=== PATIENT | female | born 1960 | race Caucasian/White ===

== ENCOUNTER 2019-09-30 10:17 | Outpatient (CLI) | payer OTHER | END 2019-09-30 10:18 | disposition critical access hospital (66) | LOC: EMS 10:17 | PROVIDERS: ATTEND Surgery | DX: R11.2 Nausea with vomiting, unspecified (principal) | CPT/HCPCS: A0425; A0427 ==

== ENCOUNTER 2019-09-30 10:49 | Emergency (ER) | payer OTHER ==
--- NOTE | 2019-09-30 10:55 | ED Physician Documentation ---
PD HPI NVD - Stated complaint Stated Complaint: VOMITING - History obtained from History obtained from: Patient - History of Present Illness Timing - onset: Last night (at 1:30 am) Timing - duration: Hours Timing - details: Abrupt onset (nausea and vomiting without diarrhea. forceful bilious vomiting without abd pain.) Associated symptoms: Loss of appetite. No: Fever, Abdominal pain, Hematemesis, Melena Contributing factors: Other (denies cannibis use). No: Sick contact, Bad food, Recent antibiotics, Alcohol use Improved by: No: Vomiting Worsened by: Eating Similar symptoms before: Has not had sx before Recently seen: Not recently seen Review of Systems Constitutional: denies: Fever, Chills Nose: denies: Rhinorrhea / runny nose, Congestion Throat: denies: Sore throat Respiratory: denies: Cough GI: reports: Nausea, Vomiting. denies: Abdominal Pain, Abdominal Swelling, Constipation, Diarrhea, Hematemesis : denies: Dysuria, Frequency Neurologic: reports: Generalized weakness. denies: Near syncope, Altered mental status, Headache PD PAST MEDICAL HISTORY - Past Medical History Past Medical History: No - Past Surgical History General: Cholecystectomy - Present Medications Home Medications: Ambulatory Orders Medication Instructions Recorded Confirmed FLUoxetine [PROzac] 09/30/19 Ondansetron Odt [Zofran] 4 mg TL Q6H PRN #10 tablet 09/30/19 buPROPion [Wellbutrin Sr] 09/30/19 lisinopriL [Lisinopril] 09/30/19 - Allergies Allergies/Adverse Reactions: Allergies Allergy/AdvReac Type Severity Reaction Status Date / Time Penicillins Allergy Unknown Verified 09/30/19 11:00 tramadol Allergy Unknown Verified 09/30/19 11:00 venlafaxine Allergy Unknown Verified 09/30/19 11:00 PD ED PE NORMAL - Vitals Vital signs reviewed: Yes - General General: Alert and oriented X 3, Well developed/nourished, Other (appears uncomfortable, dry heaving, holding emesis bag.) - HEENT HEENT: Pharynx benign - Neck Neck: Supple, no meningeal sign, Thyroid normal - Cardiac Cardiac: RRR, No murmur - Respiratory Respiratory: Clear bilaterally - Abdomen Abdomen: Soft, Non tender, Non distended, No organomegaly. No: Normal bowel s ounds (diminished) - Rectal Rectal: Deferred - Back Back: No CVA TTP - Derm Derm: Normal color - Extremities Extremities: Normal ROM s pain, No edema, No calf tenderness / cord - Neuro Neuro: Alert and oriented X 3, No motor deficit, Normal speech Results - Vitals Vitals: Vital Signs - 24 hr 09/30/19 09/30/19 10:55 13:10 Temperature 36.6 C Heart Rate 68 80 Respiratory 24 24 Rate Blood Pressure 142/126 H 154/71 H O2 Saturation 100 94 Oxygen O2 Source Room air - Labs Labs: Laboratory Tests 09/30/19 09/30/19 09/30/19 11:25 11:25 11:25 WBC 9.1 RBC 4.48 Hgb 12.1 Hct 37.3 MCV 83.3 MCH 27.0 MCHC 32.4 RDW 15.0 Plt Count 348 MPV 9.6 Neut # (Auto) 8.2 H Lymph # (Auto) 0.5 L [place] # (Auto) 0.4 Eos # (Auto) 0.0 Baso # (Auto) 0.0 Absolute Nucleated RBC 0.00 Nucleated RBC % 0.0 Sodium 138 Potassium 3.4 L Chloride 99 L Carbon Dioxide 19 L Anion Gap 20.0 H BUN 12 Creatinine 0.9 Estimated GFR (MDRD) 64 L Glucose 152 H Calcium 9.4 Magnesium 1.7 Total Bilirubin 1.3 H AST 156 H ALT 71 H Alkaline Phosphatase 176 H Troponin I High Sens 8.7 Total Protein 7.6 Albumin 3.7 Globulin 3.9 Albumin/Globulin Ratio 0.9 L Lipase 23 Urine Color Urine Clarity Urine pH Ur Specific [place] Urine Protein Urine Glucose (UA) Urine Ketones Urine Occult Blood Urine Nitrite Urine Bilirubin Urine Urobilinogen Ur Leukocyte Esterase Ur Microscopic Review Urine Culture Comments Salicylates < 6.0 Urine Opiates Screen Ur Oxycodone Screen Urine Methadone Screen Ur Propoxyphene Screen Acetaminophen < 10 L Ur Barbiturates Screen Ur Tricyclics Screen Ur Phencyclidine Scrn Ur Amphetamine Screen U Methamphetamines Scrn U Benzodiazepines Scrn Urine Cocaine Screen U Cannabinoids Screen Ethyl Alcohol < 5.0 09/30/19 12:25 WBC RBC Hgb Hct MCV MCH MCHC RDW Plt Count MPV Neut # (Auto) Lymph # (Auto) [place] # (Auto) Eos # (Auto) Baso # (Auto) Absolute Nucleated RBC Nucleated RBC % Sodium Potassium Chloride Carbon Dioxide Anion Gap BUN Creatinine Estimated GFR (MDRD) Glucose Calcium Magnesium Total Bilirubin AST ALT Alkaline Phosphatase Troponin I High Sens Total Protein Albumin Globulin Albumin/Globulin Ratio Lipase Urine Color YELLOW Urine Clarity CLEAR Urine pH 7.0 Ur Specific [place] 1.020 Urine Protein NEGATIVE Urine Glucose (UA) NEGATIVE Urine Ketones >=80 H Urine Occult Blood NEGATIVE Urine Nitrite NEGATIVE Urine Bilirubin NEGATIVE Urine Urobilinogen 1 (NORMAL) Ur Leukocyte Esterase NEGATIVE Ur Microscopic Review NOT INDICATED Urine Culture Comments NOT INDICATED Salicylates Urine Opiates Screen POSITIVE H Ur Oxycodone Screen NEGATIVE Urine Methadone Screen NEGATIVE Ur Propoxyphene Screen NEGATIVE Acetaminophen Ur Barbiturates Screen NEGATIVE Ur Tricyclics Screen NEGATIVE Ur Phencyclidine Scrn NEGATIVE Ur Amphetamine Screen NEGATIVE U Methamphetamines Scrn NEGATIVE U Benzodiazepines Scrn POSITIVE H Urine Cocaine Screen NEGATIVE U Cannabinoids Screen NEGATIVE Ethyl Alcohol PD MEDICAL DECISION MAKING - ED course Complexity details: re-evaluated patient (Improved symptoms and still without abd tenderness, focal pain. LFTs slightly up but likely related to emesis. No RUQ pain and did vomit bile, so seems less likely obstructed common duct. ), considered differential (seems likely viral GE or food related, though consider bowel obstruction or CBD obstruction (she is s/p CCY), but without any abd pain, these latter seem less likely. Denies cannibis use nor regular alcohol. ), d/w patient Departure - Departure Disposition: 01 Home, Self Care Clinical Impression: Elevated liver enzymes Nausea and vomiting Qualifiers: Vomiting type: bilious vomiting Qualified Code(s): R11.14 - Bilious vomiting Condition: Stable Record reviewed to determine appropriate education?: Yes Instructions: ED Nausea Vomiting Prescriptions: Ondansetron Odt [Zofran] 4 mg TL Q6H PRN #10 tablet PRN Reason: Nausea / Vomiting Comments: It is unclear the cause of your abrupt nausea and vomiting. Sometimes it to viral type illness or food poisoning or just a food intolerance. He seemed to be doing better at this time. Stay hydrated through the day and bland food and use ondansetron if needed for recurrent nausea. Tylenol if needed for pains. Since he do not have any abdominal tenderness or pain, I do not see an indication for further testing at this time. You have a slight elevation of your liver enzymes which could come from just the vomiting. Again without any pain or tenderness it does not sound bile duct or obstruction which other causes. Return if persistent nausea or symptoms more than a day or 2 or if you have localized pain develop or fever or vomiting blood or other considerations. You may develop some diarrhea through the day which could be consistent with a food poisoning type picture. Discharge Date/Time: 09/30/19 13:40
[2019-09-30] MEDS ORDERED: SODIUM CHLORIDE 0.9% 1,000 ML IV STA (11:08)
[2019-09-30] MEDS ORDERED: PROCHLORPERAZINE 10 MG/2 ML VIAL IVP STA (11:08)
[2019-09-30] MEDS ORDERED: diphenhydrAMINE INJ 50 MG/ML VIAL IVP STA (11:08)
[2019-09-30] MEDS ORDERED: FAMOTIDINE 20 MG/2 ML SYRINGE IVP STA (11:09)
[2019-09-30 11:32] LABS: BASOPHILS % (AUTO) 0.1 %; HGB - HEMOGLOBIN 12.1 g/dL (12.0-16.0); LYMPHOCYTES # (AUTO) 0.5 10^3/uL (1.5-3.5); LYMPHOCYTES % (AUTO) 5.7 %; MEAN CORPUSCULAR HGB CONC 32.4 g/dL (32.0-36.0); MEAN CORPUSCULAR VOLUME 83.3 fL (81.0-99.0); MEAN PLATELET VOLUME 9.6 fL (7.9-10.8); MONOCYTES # (AUTO) 0.4 10^3/uL (0.0-1.0); MONOCYTES % (AUTO) 3.8 %; NEUTROPHILS # (AUTO) 8.2 10^3/uL (1.5-6.6); PLT - PLATELET COUNT 348 10^3/uL (130-450); RED BLOOD COUNT 4.48 10^6/uL (4.20-5.40); WHITE BLOOD COUNT 9.1 x10^3/uL (4.8-10.8)
[2019-09-30 11:46] LABS: ACETAMINOPHEN < 10 ug/mL (10-30); ALBUMIN 3.7 g/dL (3.2-5.5); ALBUMIN/GLOBULIN RATIO 0.9 (1.0-2.2); ALKALINE PHOSPHATASE 176 IU/L (42-121); ALT ALANINE AMINOTRANSFERASE 71 IU/L (10-60); AST ASPARTATE AMINOTRANSFERASE 156 IU/L (10-42); BILIRUBIN,TOTAL 1.3 mg/dL (0.2-1.0); BUN - BLOOD UREA NITROGEN 12 mg/dL (6-20); CALCIUM 9.4 mg/dL (8.5-10.3); CARBON DIOXIDE - CO2 19 mmol/L (21-32); CHLORIDE 99 mmol/L (101-111); CREATININE 0.9 mg/dL (0.4-1.0); GLUCOSE 152 mg/dL (70-100); LIPASE 23 U/L (22-51); MAGNESIUM 1.7 mg/dL (1.7-2.8); SALICYLATE < 6.0 mg/dL; SODIUM 138 mmol/L (135-145); TOTAL PROTEIN 7.6 g/dL (6.7-8.2)
[2019-09-30 12:38] LABS: MUDS CUTOFF CONCENTRATIONS CUTOFF CONC BELOW:
[2019-09-30 12:40] LABS: BILIRUBIN,URINE NEGATIVE (NEGATIVE); GLUCOSE, URINE (UA) NEGATIVE (NEGATIVE); KETONES,URINE (UA) >=80 mg/dL (NEGATIVE); LEUKOCYTE ESTERASE, URINE NEGATIVE (NEGATIVE); NITRITE,URINE NEGATIVE (NEGATIVE); OCCULT BLOOD,URINE NEGATIVE (NEGATIVE); PROTEIN,URINE NEGATIVE (NEGATIVE); UROBILINOGEN,URINE 1 (NORMAL) E.U./dL (NORMAL)
[2019-09-30 12:41] LABS: CLARITY,URINE CLEAR (CLEAR)
[2019-09-30 12:53] LABS: AMPHETAMINE SCREEN,URINE NEGATIVE (NEGATIVE); BENZODIAZEPINES SCREEN, URINE POSITIVE (NEGATIVE); COCAINE SCREEN URINE NEGATIVE (NEGATIVE); METHADONE SCREEN, URINE NEGATIVE (NEGATIVE); METHAMPHETAMINES SCREEN, URINE NEGATIVE (NEGATIVE); OPIATE SCREEN, URINE POSITIVE (NEGATIVE); TRICYCLIC ANTIDEPRESSANT,URINE NEGATIVE (NEGATIVE)
[2019-09-30 12:54] LABS: OXYCODONE SCREEN, URINE NEGATIVE (NEGATIVE); PROPOXYPHENE SCREEN, URINE NEGATIVE (NEGATIVE)
[2019-09-30 13:14] VITALS: BP 154/71
== END 2019-09-30 13:40 | disposition home or self-care (01) ==
LOC: ED 10:49
DX: R11.14 Bilious vomiting (principal); R74.8 Abnormal levels of other serum enzymes; R53.1 Weakness
CPT/HCPCS: 36415; 80053; 80320; 80329; 81003; 83690; 83735; 84484; 85025; 96361; 96374; 96375; 99283; 99284; J1200; 80306; 80307; 81001; 87086